=== PATIENT | female | born 2000 | race Caucasian/White ===

== ENCOUNTER 2020-12-11 12:54 | Emergency (ER) | payer SELFPAY ==
[~2020-12-11] VITALS: Ht 160 cm; Wt 76.7 kg
[2020-12-11 13:05] VITALS: BP 147/76
--- NOTE | 2020-12-11 13:05 | NUR ---
Ambulated to bed 6
--- NOTE | 2020-12-11 13:16 | NUR ---
Patient being evaluated by physician at bedside.
--- NOTE | 2020-12-11 13:17 | NUR ---
20 y/o F coming in from home with c/c lip pain. Pt states purple discoloration to the inner upper/lower lip. Pt states it occurred today at 12pm after clocking in for work. Patient denies injury to lip, pain, states little numbness to her lips at this time. Pt denies any trauma, injuries, falls prior to arrival. Lung sounds CTA. Bed locked in lowest position, side rails x 1. ERMD made aware and advising patient of discharge plan and to follow up with PCP/come back to ER if it worsens. PMH/Meds: Denies NKA
--- NOTE | 2020-12-11 13:38 | NUR ---
Patient discharged with v/s stable. Written and verbal after care instructions given and explained. Patient verbalized understanding. Ambulatory with steady gait. All questions addressed prior to discharge. Advised to follow up with PMD.
--- NOTE | 2020-12-11 14:19 | NUR ---
Note aye in EDM - 12/11/20 at 1420 by [facility] Patient discharged with v/s stable. Written and verbal after care instructions given and explained. Patient verbalized understanding. Ambulatory with steady gait. All questions addressed prior to discharge. Advised to follow up with PMD.
[2020-12-11 14:57] VITALS: BP 147/76
== END 2020-12-11 13:38 | disposition home or self-care (01) ==
LOC: MED 12:54
DX: L81.9 Disorder of pigmentation, unspecified (principal)
CPT/HCPCS: 99281

== ENCOUNTER 2021-02-20 21:49 | Emergency (ER) | payer BC, OTHER ==
[~2021-02-20] VITALS: Ht 157.5 cm; Wt 76.2 kg
[2021-02-20 22:02] VITALS: BP 128/90
--- NOTE | 2021-02-20 22:04 | NUR ---
PATIENT AMBUALTED TO BATHROOM TO PROVIDE UA SAMPLE.
--- NOTE | 2021-02-20 22:12 | NUR ---
PATIENT AMBULATED TO LOBBY TO AWAIT FOR CALL BACK.
--- NOTE | 2021-02-20 22:44 | NUR ---
21 y.o female who is a poor historian that has generalized weakness, nausea, chills, no energy for x4 days. AAOx4. VSS. PMH: N/A ALLERGGIES: EDGARDO
[2021-02-20] MEDS ORDERED: ONDANSETRON 4 MG ODT PO ONE (22:45)
--- NOTE | 2021-02-20 22:45 | NUR ---
AMBULATED TO ER BED 4
--- NOTE | 2021-02-20 23:00 | NUR ---
ERMD at bedside for examination
[2021-02-20 23:14] LABS: BASOPHILS % (AUTO) 0.4 % (0.0-2.0); EOSINOPHILS # (AUTO) 0.2 K/uL (0-0.4); EOSINOPHILS % (AUTO) 2.1 % (0.0-4.0); HEMATOCRIT 40.4 % (36-48); HEMOGLOBIN 13.7 g/dL (12.0-16.0); LYMPHOCYTES # (AUTO) 2.4 K/uL (2.5-16.5); LYMPHOCYTES % (AUTO) 29.3 % (20.5-51.1); MEAN CORPUSCULAR HEMOGLOBIN 28 pg (27-31); MEAN CORPUSCULAR HGB CONC 34 g/dL (33-37); MEAN CORPUSCULAR VOLUME 83.8 fL (80-94); MONOCYTES # (AUTO) 0.6 K/uL (0.8-1.0); MONOCYTES % (AUTO) 7.8 % (1.7-9.3); NEUTROPHILS # (AUTO) 4.8 K/uL (1.8-7.7); NEUTROPHILS % (AUTO) 60.4 % (42.2-75.2); PLATELET COUNT (AUTO) 236 K/uL (140-450); RED BLOOD CELL COUNT(AUTO) 4.82 MIL/uL (4.20-5.40); RED CELL DISTRIBUTION WIDTH 14.4 % (11.6-13.7)
[2021-02-20 23:35] LABS: ALBUMIN 4.4 g/dL (3.4-5.0); ANION GAP 12.9 (8-16); CARBON DIOXIDE 27.8 mmol/L (21-32); CREATININE 0.9 mg/dL (0.6-1.3); POTASSIUM 3.7 mmol/L (3.5-5.1); TOTAL BILIRUBIN 0.5 mg/dL (0.0-1.0)
[2021-02-20 23:39] LABS: APPEARANCE,URINE CLEAR (CLEAR); BILIRUBIN,URINE NEGATIVE (NEGATIVE); BLOOD, URINE NEGATIVE (NEGATIVE); COLOR,URINE YELLOW (YELLOW); LEUKOCYTE ESTERASE ,URINE TRACE (NEGATIVE); NITRITE, URINE NEGATIVE (NEGATIVE); PH,URINE 6.5 (5.0-9.0); UGLUCOSE NEGATIVE (NEGATIVE)
[2021-02-20 23:59] LABS: RBC,URINE 0-5 /HPF (0-5); WBC,URINE 0-5 /HPF (0-5)
--- NOTE | 2021-02-21 00:40 | NUR ---
Leah griffiths in [facility] - 02/21/21 at [address] Pt [address] CT via wheelchair
--- NOTE | 2021-02-21 00:40 | NUR ---
ERMD at bedside for re-examination, teaching, and announcing results to patient
[2021-02-21] MEDS ORDERED: ONDA-24 PO (00:54)
[2021-02-21 01:00] VITALS: BP 125/76
--- NOTE | 2021-02-21 01:00 | NUR ---
Patient discharged with v/s stable. Written and verbal after care instructions given and explained. Patient alert, oriented and verbalized understanding of instructions. Ambulatory with steady gait. All questions addressed prior to discharge. ID band removed. Patient advised to follow up with PMD. Rx of zofran ODT given. Patient educated on indication of medication including possible reaction and side effects. Opportunity to ask questions provided and answered.
== END 2021-02-21 01:00 | disposition home or self-care (01) ==
LOC: MED 21:49
DX: E03.9 Hypothyroidism, unspecified (principal); R11.0 Nausea; R53.1 Weakness
CPT/HCPCS: 36415; 80053; 81001; 81025; 83690; 84443; 84702; 85025; 87086; 99283; Q0162